=== PATIENT | male | born 1970 | race Caucasian/White ===

== ENCOUNTER 2025-01-04 09:09 | Emergency (ER) | payer BC, MEDICAID ==
[~2025-01-04] VITALS: Ht 172.7 cm; Wt 108.9 kg
[2025-01-04 09:27] VITALS: BP 150/78
[2025-01-04] MEDS ORDERED: ACETAMINOPHEN 500 MG TABLET ONE (09:55)
[2025-01-04] MEDS: ACETAMINOPHEN 500 MG TABLET PO ONE (09:56)
[2025-01-04 10:30] VITALS: BP 150/78; TEMP 97.5; O2SAT 95
== END 2025-01-04 10:30 | disposition home or self-care (01) ==
LOC: ER 09:09
DX: S40.021A Contusion of right upper arm, initial encounter (principal); F15.20 Other stimulant dependence, uncomplicated; V29.99XA Rider (driver) (passenger) of other motorcycle injured in unspecified traffic accident, initial encounter; Y93.89 Activity, other specified; Y92.488 Other paved roadways as the place of occurrence of the external cause; Y99.8 Other external cause status
CPT/HCPCS: 73060; 73090; 73130; A4606; A4663; A9150